=== PATIENT | male | born 1935 | race Caucasian/White ===

== ENCOUNTER 2017-08-07 12:47 | Outpatient (CLI) | payer MEDICARE, OTHER | END 2017-08-07 12:48 | disposition short-term general hospital (02) | LOC: EMS 12:47 | PROVIDERS: ATTEND Surgery | DX: M25.512 Pain in left shoulder (principal); W19.XXXA Unspecified fall, initial encounter; Y92.009 Unspecified place in unspecified non-institutional (private) residence as the place of occurrence of the external cause | CPT/HCPCS: A0425; A0429; A0888 ==

== ENCOUNTER 2018-05-12 14:40 | Outpatient (CLI) | payer MEDICARE, OTHER | END 2018-05-12 14:41 | disposition short-term general hospital (02) | LOC: EMS 14:40 | PROVIDERS: ATTEND Surgery | DX: R53.1 Weakness (principal) | CPT/HCPCS: A0425; A0429; A0888 ==

== ENCOUNTER 2019-01-12 15:34 | Outpatient (CLI) | payer MEDICARE, OTHER ==
--- NOTE | 2019-01-12 21:13 | XRAY Report ---
Reason: cough Procedure Date: 01/12/2019 Accession Number: [id number] Procedure: XRN - Chest 2 View X-Ray CPT Code: 10906 FULL RESULT: EXAM: CHEST RADIOGRAPHY EXAM DATE: 01/12/2019 04:22 PM. CLINICAL HISTORY: Cough. COMPARISON: XR CHEST PA AND LAT 11/01/2009 10:16 AM. TECHNIQUE: 2 views. FINDINGS: Lungs/Pleura: No consolidative process or pulmonary edema. Negative for pleural effusion and pneumothorax. There is mild elevation of the anterior right hemidiaphragm, unchanged. Mediastinum: The heart size is normal. There is mild to moderate atherosclerotic calcification of the aorta. Previous cardiac valve surgery noted. Other: None. IMPRESSION: No acute cardiopulmonary abnormality. No focal acute pneumonia. [facility]
== END 2019-01-12 15:35 | disposition home or self-care (01) ==
LOC: DI.N 15:34
PROVIDERS: ATTEND Family Medicine
DX: R05 Cough (principal)
CPT/HCPCS: 71046